=== PATIENT | female | born 1950 | race Caucasian/White ===

== ENCOUNTER 2021-04-22 09:35 | Day surgery (SDC) | payer MEDICARE, OTHER ==
[2021-04-22] MEDS ORDERED: LIDOCAINE HCL 1% 50 MG/5 ML VL PF IJ ONE (09:36)
[2021-04-22] MEDS ORDERED: Epinephrine Preservative Free 1 MG/ML IJ ONE (09:36)
[2021-04-22] MEDS ORDERED: Lactated Ringers 1,000 ML IV ONE (10:04)
[2021-04-22] MEDS ORDERED: NON-FORMULARY ITEM OP ONE (11:00)
[2021-04-22] MEDS ORDERED: cefUROXime sodium 0.005 GM in Sodium Chloride Flush 30 ML*** 0.5 ML IJ SCH (11:00)
[2021-04-22] MEDS ORDERED: BETADINE 5% OPHTHALMIC 30 ML OP ONE (11:00)
[2021-04-22] MEDS ORDERED: Lactated Ringers 1,000 ML IV SCH (11:00)
[2021-04-22] MEDS ORDERED: TETRACAINE 0.5% STERI-UNIT SOL OP ONE ×2 (11:00)
[2021-04-22] MEDS ORDERED: Ak-Dilate OPHTHALMIC*** 1.065 ML, Cyclogyl 1% OPHTH SOL 5 ML 1.065 ML, GATIFLOXACIN 0.5... OP ONE ×4 (11:00)
[2021-04-22] MEDS ORDERED: Zofran 4 MG/2 ML VIAL IV PRN (13:00)
[2021-04-22] MEDS ORDERED: ACETAZOLAMIDE 250 MG TABLET PO ONE (13:00)
[2021-04-22] MEDS ORDERED: ROBINUL ONE (13:33)
[2021-04-22] MEDS ORDERED: DIPRIVAN 200 MG/20 ML IV ONE (13:33)
[2021-04-22] MEDS ORDERED: SUBLIMAZE 100 MCG/2 ML ONE (13:33)
[2021-04-22] MEDS ORDERED: Versed 2 MG/2 ML Injection ONE (13:33)
[2021-04-22 15:00] VITALS: BP 140/77; PULSE 67; O2SAT 96
== END 2021-04-22 15:05 | disposition home or self-care (01) ==
LOC: SDC 09:35
PROVIDERS: ATTEND Ophthalmology
DX: H25.812 Combined forms of age-related cataract, left eye (principal); Z79.899 Other long term (current) drug therapy
CPT/HCPCS: 99100; J0171; J2001; J2250; J2704; J3010; V2787; A9270-GY

== ENCOUNTER 2021-05-20 10:28 | Day surgery (SDC) | payer MEDICARE, OTHER ==
[~2021-05-20 10:28] MED LIST: ACETAZOLAMIDE 250 MG TABLET PO ONE; Ak-Dilate OPHTHALMIC*** 1.065 ML, Cyclogyl 1% OPHTH SOL 5 ML 1.065 ML, GATIFLOXACIN 0.5... OP ONE; BETADINE 5% OPHTHALMIC 30 ML OP ONE; Lactated Ringers 1,000 ML IV SCH; NON-FORMULARY ITEM OP ONE; TETRACAINE 0.5% STERI-UNIT SOL OP ONE; Zofran 4 MG/2 ML VIAL IV PRN; cefUROXime sodium 0.005 GM in Sodium Chloride Flush 30 ML*** 0.5 ML IJ ONE
[2021-05-20] MEDS ORDERED: Epinephrine Preservative Free 1 MG/ML IJ ONE (10:29)
[2021-05-20] MEDS ORDERED: LIDOCAINE HCL 1% 50 MG/5 ML VL PF IJ ONE (10:29)
[2021-05-20] MEDS ORDERED: Lactated Ringers 1,000 ML IV ONE (11:04)
[2021-05-20] MEDS ORDERED: Versed 2 MG/2 ML Injection ONE (12:32)
[2021-05-20] MEDS ORDERED: SUBLIMAZE 100 MCG/2 ML ONE (12:39)
[2021-05-20] MEDS ORDERED: DIPRIVAN 200 MG/20 ML IV ONE (12:39)
== END 2021-05-20 13:52 | disposition home or self-care (01) ==
LOC: SDC 10:28
PROVIDERS: ATTEND Ophthalmology
DX: H25.811 Combined forms of age-related cataract, right eye (principal); Z79.899 Other long term (current) drug therapy; Z96.1 Presence of intraocular lens
CPT/HCPCS: 99100; J0171; J2001; J2250; J2704; J3010; V2787; A9270-GY